=== PATIENT | male | born 1990 | race Caucasian/White ===

== ENCOUNTER → 2022-02-20 | Outpatient (CLI) | payer OTHER | END | disposition home or self-care (01) | LOC: RADPV 08:16 | PROVIDERS: ATTEND Family Medicine | DX: K43.9 Ventral hernia without obstruction or gangrene (principal); K82.4 Cholesterolosis of gallbladder; K44.9 Diaphragmatic hernia without obstruction or gangrene | CPT/HCPCS: 76700 ==

== ENCOUNTER → 2022-08-27 | Outpatient (CLI) | payer OTHER | END | disposition home or self-care (01) | LOC: RADPV 08:35 | PROVIDERS: ATTEND Family Medicine | DX: K86.89 Other specified diseases of pancreas (principal); K82.4 Cholesterolosis of gallbladder | CPT/HCPCS: 76700 ==